=== PATIENT | male | born 1945 ===

== ENCOUNTER 2024-08-28 15:04 | Emergency (ER) | payer MEDICARE, OTHER ==
[~2024-08-28] VITALS: Ht 182.9 cm; Wt 84.8 kg
[2024-08-28 15:34] VITALS: TEMP 98.3
[2024-08-28] MEDS ORDERED: LISI-893 PO (16:06)
[2024-08-28] MEDS ORDERED: POTA-206 PO (16:06)
[2024-08-28] MEDS ORDERED: ATOR40TA28 PO (16:06)
[2024-08-28] MEDS ORDERED: FURO20TA5 PO (16:06)
[2024-08-28] MEDS ORDERED: METO25 PO (16:06)
[2024-08-28 16:20] LABS: BASOPHILS % (AUTO) 1.4 % (0.0-2.0); EOSINOPHILS % (AUTO) 2.2 % (1.0-6.0); HEMATOCRIT 38.5 % (41-53); HEMOGLOBIN 12.6 g/dL (13.5-17.5); LYMPHOCYTES # (AUTO) 0.8 K/uL (1.0-4.8); LYMPHOCYTES % (AUTO) 16.1 % (22.0-44.0); MEAN CORPUSCULAR HEMOGLOBIN 30.2 pg (26.0-34.0); MEAN CORPUSCULAR HGB CONC 32.8 G/dL (31.0-37.0); MEAN CORPUSCULAR VOLUME 92 fL (80-100); MONOCYTES # (AUTO) 0.6 K/uL (0.1-1.0); MONOCYTES % (AUTO) 13.3 % (2.0-9.0); NEUTROPHILS # (AUTO) 3.2 K/uL (1.8-7.7); PLATELET COUNT (AUTO) 225 K/uL (150-450); RED BLOOD CELL COUNT(AUTO) 4.18 MIL/uL (4.50-5.90); RED CELL DISTRIBUTION WIDTH 14.8 % (11.5-14.5); WHITE BLOOD COUNT (AUTO) 4.8 K/uL (4.5-11.0)
[2024-08-28 16:35] LABS: ANION GAP 6 mmol/L (8-16); CALCIUM, TOTAL 9.1 mg/dL (8.8-10.5); CARBON DIOXIDE 30 mmol/L (22-29); CHLORIDE 102 mmol/L (98-107); CREATININE 1.08 mg/dL (0.60-1.30); GLOMERULAR FILTR. RATE CALC > 60 mL/min (>60); GLUCOSE,RANDOM 81 mg/dL (70-110); POTASSIUM 4.3 mmol/L (3.5-5.1); SODIUM SERUM 138 mmol/L (136-145); UREA NITROGEN, BLOOD 18 mg/dL (7-18)
[2024-08-28 16:40] LABS: ALANINE AMINOTRANSFERASE 14 U/L (12-78); ALKALINE PHOSPHATASE 67 U/L (46-116); ASPARTATE AMINOTRANSFERASE 15 U/L (15-37); BILIRUBIN,TOTAL 0.3 mg/dL (0.1-1.0); TOTAL PROTEIN, SERUM 6.9 g/dL (6.4-8.2)
[2024-08-28 16:46] LABS: TROPONIN I-HIGH SENSITIVITY 16 ng/L (<76)
[2024-08-28 16:47] LABS: B-TYPE NATRIURETIC PEPTIDE 105 pg/mL (0-100)
[2024-08-28 18:14] VITALS: BP 166/88; PULSE 60; RESP 17; O2SAT 99
== END 2024-08-28 20:15 | disposition home or self-care (01) ==
LOC: EMS 15:04
DX: R00.2 Palpitations (principal); I11.0 Hypertensive heart disease with heart failure; I50.9 Heart failure, unspecified; E78.5 Hyperlipidemia, unspecified; Z95.0 Presence of cardiac pacemaker
CPT/HCPCS: 71045; 80048; 80076; 83735; 83880; 84484; 85025; 93005; 99285; 36415-L1; 36415-TC